=== PATIENT | female | born 1965 | race Caucasian/White ===

== ENCOUNTER 2021-01-19 13:04 | Emergency (ER) | payer OTHER, SELFPAY ==
[2021-01-19 13:20] VITALS: BP 153/88; PULSE 89; RESP 18; TEMP 37; O2SAT 98
[2021-01-19] MEDS: predniSONE 20 MG TABLET 80 MG PO (14:31)
--- NOTE | 2021-01-19 14:47 | ED.URI ---
HPI - URI/Sore Throat General Chief Complaint: Upper Respiratory Infection Stated Complaint: sinus drainage,chest congestion Source: patient and RN notes reviewed Limitations: no limitations History of Present Illness HPI Narrative: This vaccinated patient, as asthmatic non-smoker/nondrinker on multiple meds inc [facility] for psoriatic arthritis, presents with 1/2-month history of slightly productive cough and occasional wheezing despite nebulizer. No fever, calf pain/edema, sig sputum changes ; no loss of taste/smell, S OB, vomiting/diarrhea, CP . Symptoms are mild unrelieved with occasional DuoNeb nebulizer; discussed plan will provide antibiotics and steroids that worked in past, to follow-up with PMD or information technology analyst Related Data Home Medications Medication Instructions Recorded Confirmed albuterol sulfate [Proventil HFA] 1 inh INHALATION Q4-6H 01/19/21 01/19/21 ascorbic acid (vitamin C) 500 mg PO DAILY 01/19/21 01/19/21 betamethasone valerate [Valisone] 1 applic TOPICAL BID 01/19/21 01/19/21 budesonide-formoterol [Symbicort] 1 inh INHALATION BID 01/19/21 01/19/21 carvedilol [Coreg] 25 mg PO BID 01/19/21 01/19/21 celecoxib [Celebrex] 200 mg PO BID 01/19/21 01/19/21 cholecalciferol (vitamin D3) 25 mcg PO DAILY 01/19/21 01/19/21 etanercept [Enbrel] 50 mg SUBCUT WEEKLY 01/19/21 01/19/21 fluticasone propionate [Flonase] 1 spray INTRANASAL DAILY 01/19/21 01/19/21 furosemide [Lasix] 20 mg PO BID 01/19/21 01/19/21 lactobacillus combination no.8 15 cell PO DAILY 01/19/21 01/19/21 [Adult Probiotic] lansoprazole [Prevacid] 30 mg PO BID 01/19/21 01/19/21 leflunomide [Arava] 20 mg PO DAILY 01/19/21 01/19/21 lisinopril [Zestril] 20 mg PO DAILY 01/19/21 01/19/21 loratadine [Claritin] 10 mg PO DAILY 01/19/21 01/19/21 magnesium oxide 400 mg PO DAILY 01/19/21 01/19/21 meclizine [Antivert] 25 mg PO TID 01/19/21 01/19/21 melatonin 5 mg PO HS 01/19/21 01/19/21 montelukast [Singulair] 10 mg PO DAILY 01/19/21 01/19/21 [id number]-[id number]-FA-vit K 1 tablet PO DAILY 01/19/21 01/19/21 [Adults Multivitamin] nystatin [Mycostatin] 5 ml PO QID 01/19/21 01/19/21 zinc sulfate 220 mg PO DAILY 01/19/21 01/19/21 Allergies Allergy/AdvReac Type Severity Reaction Status Date / Time prochlorperazine Allergy Unknown Unverified 01/19/21 13:25 Review of Systems Review of Systems: General/Constitutional: No weight loss,fever Eyes: N0: Redness,discharge Ears/Nose/Throat: No: Epistaxis,ear discharge Respiratory: Denies: Hemoptysis Gastrointestinal: No Vomiting, Bleeding-rectal Skin: No Lumps, eruption Neurologic: No Focal Weakness,Sz Hematologic: Denies: Petechiae/Purpura Psychiatric: No: Suicida ideationl All Other Systems: Reviewed and Negative PMFSH Comments At time of signature, agree with nursing past medical, surgical, social and family history. There is no relevant family history pertinent to the presenting complaint Exam Narrative: General Appearance: Well appearing, Well nourished/ overweight EYE: PERRLA, Conjunctiva clear Ears: Auditory canal normal, TM normal Nose: Rhinorrhea, Mucousal erythema Mouth/Throat: MM moist, Uvula midline, Pharyngeal erythema Neck: Supple, No adenopathy Respiratory: No respiratory distress, good work of breathing -decreased BS at bases only, scattered wheezing Cardiovascular: RRR, No JVD Musculoskeletal: Non tender, Normal strength Skin: Warm, Dry Neurological: A&O x3, CN II-XII intact Psychiatric: Normal mood, Normal affect Course Vital Signs Vital signs: Vital Signs Temperature 98.6 F 01/19/21 13:20 Pulse Rate 89 01/19/21 13:20 Respiratory Rate 18 01/19/21 13:20 Blood Pressure 153/88 H 01/19/21 13:20 Pulse Oximetry 98 01/19/21 13:20 Temperature 98.6 F 01/19/21 13:20 Pulse Rate 89 01/19/21 13:20 Respiratory Rate 18 01/19/21 13:20 Blood Pressure 153/88 H 01/19/21 13:20 Pulse Oximetry 98 01/19/21 13:20 MDM - URI/Sore Throat Lab Data Labs: Lab
[2021-01-20 20:27] LABS: SARS-CoV-2 RNA PCR Negative
== END 2021-01-19 14:58 | disposition home or self-care (01) ==
PROVIDERS: Emergency Provider Emergency Medicine
DX: R06.2 Wheezing (principal); J98.8 Other specified respiratory disorders; Z20.822 Contact with and (suspected) exposure to COVID-19
CPT/HCPCS: 99213; C9803; G0463; J7512; U0003; U0005

== ENCOUNTER 2021-04-12 17:01 | Emergency (ER) | payer OTHER, SELFPAY ==
--- NOTE | ~2021-04-12 | XR_ITS ---
EXAMINATION: XR knee LT 3V DATE: 04/12/2021 17:56 INDICATION: Left knee pain TECHNIQUE: Five views of the left knee were obtained. COMPARISON: None. FINDINGS: Alignment is normal. No fracture or osteochondral lesion. There is mild tricompartmental os teoarthritis characterized by tiny marginal osteophytes. No joint effusion/synovitis. Soft tissues a re unremarkable. IMPRESSION: 1. No acute osseous abnormality. Reviewed, dictated and finalized at location F. T MACHINIST
[2021-04-12 17:10] VITALS: BP 163/97; PULSE 107; RESP 20; TEMP 36.1; O2SAT 100
--- NOTE | 2021-04-12 17:13 | ED.LOWEXIN ---
HPI - Extremity Injury (Lower) General Chief Complaint: Extremity Injury, Lower Stated Complaint: left knee pain Time Seen by Provider: 04/12/21 17:12 Source: patient and RN notes reviewed Mode of arrival: wheelchair Limitations: no limitations History of Present Illness MD complaint: knee injury Onset (ago): minute(s) (43) Injury: Left: knee Type of Injury: other (stepped up stair) Place: home Severity: severe Relieving factors: nothing Exacerbating factors: weight bearing and movement Context: walking Associated symptoms: snap/pop sensation and able to partially bear weight Other symptoms: none Related Data Home Medications Medication Instructions Recorded Confirmed albuterol sulfate [Proventil HFA] 1 inh INHALATION Q4-6H 01/19/21 04/12/21 ascorbic acid (vitamin C) 500 mg PO DAILY 01/19/21 04/12/21 budesonide-formoterol [Symbicort] 1 inh INHALATION BID 01/19/21 04/12/21 carvedilol [Coreg] 25 mg PO BID 01/19/21 04/12/21 celecoxib [Celebrex] 200 mg PO BID 01/19/21 04/12/21 cholecalciferol (vitamin D3) 25 mcg PO DAILY 01/19/21 04/12/21 etanercept [Enbrel] 50 mg SUBCUT WEEKLY 01/19/21 04/12/21 fluticasone propionate [Flonase] 1 spray INTRANASAL DAILY 01/19/21 04/12/21 furosemide [Lasix] 20 mg PO BID 01/19/21 04/12/21 lactobacillus combination no.8 15 cell PO DAILY 01/19/21 04/12/21 [Adult Probiotic] lansoprazole [Prevacid] 30 mg PO BID 01/19/21 04/12/21 leflunomide [Arava] 20 mg PO DAILY 01/19/21 04/12/21 lisinopril [Zestril] 20 mg PO DAILY 01/19/21 04/12/21 loratadine [Claritin] 10 mg PO DAILY 01/19/21 04/12/21 magnesium oxide 400 mg PO DAILY 01/19/21 04/12/21 meclizine [Antivert] 25 mg PO TID 01/19/21 04/12/21 melatonin 5 mg PO HS 01/19/21 04/12/21 montelukast [Singulair] 10 mg PO DAILY 01/19/21 04/12/21 miaiquyfobca-blr-lwbd-FA-vit K 1 tablet PO DAILY 01/19/21 04/12/21 [Adults Multivitamin] zinc sulfate 220 mg PO DAILY 01/19/21 04/12/21 Allergies Allergy/AdvReac Type Severity Reaction Status Date / Time prochlorperazine Allergy Unknown Unverified 01/19/21 13:25 Review of Systems Review of Systems: All systems reviewed & are unremarkable except as noted in HPI and below PMFSH Past Medical History Medical History (Updated 04/12/21 @ 17:48 by Jose Ochoa MD) Arthritis GERD (gastroesophageal reflux disease) Hypertension Idiopathic cardiomyopathy Morbid obesity Surgical History Surgical History (Updated 04/12/21 @ 17:48 by Jose Ochoa MD) H/O knee surgery right S/P [employer] TE[employer] shunt Exam Const: General: healthy appearing, no acute distress and alert Nutritional Appearance: well nourished and obese morbidly obese Orientation/consciousness: patient oriented x3 Other: female nurse in room during examination HENMT: Head: normal to inspection Ears: external ears normal Eyes: Conjunctivae: conjunctivae normal Pupils: Equal, round and reactive pupils present EOM: EOMs intact bilaterally Neck: Neck: normal visual inspection Resp: Effort & Inspection: normal respiratory effort Auscultation: clear to auscultation bilaterally Cardio: Rate: regular rate Rhythm: regular rhythm GI: GI Palp: Yes Soft to palpation and No Tenderness to palpation present (GI) Auscultation: normal bowel sounds Back/Spine/Pelvis: Cervical Spine: cervical ROM normal Thoracic/Lumbar Spine: thoraco-lumbar ROM normal Skin: General skin exam: normal color Rashes: no rashes Neuro: General: patient oriented x3, moves all extremities, no meningeal signs, no focal motor deficits and CN's II-XI intact bilaterally Speech: normal speech Extrem: General: normal exam except as noted and no clubbing, cyanosis or edema Left lower extremity: knee Details: tenderness Location: of the popliteal fossa and of the lateral joint line, abnormal ROM Details: pain with active ROM Details: with extension and with flexion and pain with passive ROM Details: with extension and with flexion, knee ligament exam normal and Rochelle's Test Details
[2021-04-12] MEDS: KETOROLAC (*BKC) 60 MG/2 ML VIAL IM (17:54)
[2021-04-12 18:14] VITALS: BP 163/97; PULSE 107; RESP 20; TEMP 36.6; O2SAT 97
== END 2021-04-12 18:16 | disposition home or self-care (01) ==
PROVIDERS: Emergency Provider Emergency Medicine
DX: M23.92 Unspecified internal derangement of left knee (principal)
CPT/HCPCS: 73562; 96372; 99283; J1885; L1830